=== PATIENT | female | born 1970 | race Caucasian/White ===

== ENCOUNTER 2022-02-14 21:42 | Observation (INO) ==
[2022-02-15] MEDS ORDERED: Naloxone 0.4 MG/ML INJ IVP PRN (01:51)
[2022-02-15 03:05] LABS: Basophils % 0.7 %; Eosinophils # 0.1 K/mcL (0.0-0.6); Eosinophils % 2.2 %; Hematocrit 34.6 % (35.3-44.9); Immature Granulocytes % 0.3 % (0-4); Lymphocytes # 2.7 K/mcL (0.6-4.6); Lymphocytes % 46.3 %; Mean Corpuscular HGB Conc 31.8 g/dL (31.6-35.5); Mean Corpuscular Hemoglobin 28.3 pg (28.0-33.3); Mean Corpuscular Volume 88.9 fL (83.0-100.0); Mean Platelet Volume 9.1 fL (9.4-12.4); Monocytes # 0.4 K/mcL (0.0-1.3); Monocytes % 7.2 %; Neutrophils # 2.5 K/mcL (1.6-8.9); Platelet Count 217 K/mcL (140-400); Red Blood Count 3.89 M/mcL (3.82-4.97); Red Cell Distribution Width 13.4 % (11.5-14.5); Segmented Neutrophils % 43.3 %; White Blood Count 5.9 K/mcL (4.3-11.1)
[2022-02-15] MEDS ORDERED: SUMAtriptan succinate 50 MG TABLET PO ONE (03:08)
[2022-02-15 03:19] LABS: INR 1.1; Prothrombin Time 12.3 Seconds (9.4-12.1)
[2022-02-15 03:31] LABS: Alanine Aminotransferase 33 Units/L (7-52); Albumin 3.2 g/dL (3.5-5.7); Albumin/Globulin Ratio 1.1 (1.1-2.2); Alkaline Phosphatase 76 Units/L (34-104); Aspartate Amino Transferase 18 Units/L (13-39); BUN/Creatinine Ratio 11 (6-26); Bilirubin,Total 0.8 mg/dL (0.3-1.0); Blood Urea Nitrogen 7 mg/dL (6-20); Calcium 8.3 mg/dL (8.6-10.3); Carbon Dioxide 26 mEq/L (23-29); Chloride 107 mEq/L (98-107); Glucose 128 mg/dL (70-105); Osmolality,Calculated 290 (280-300); Potassium 3.5 mEq/L (3.5-5.1); Sodium 140 mEq/L (136-145); Total Protein 6.2 g/dL (6.4-8.9)
[2022-02-15] MEDS ORDERED: *HR* Dextrose 50 % in Water (Syg) 50 ML SYRINGE IVP PRN (03:36)
[2022-02-15] MEDS ORDERED: Dextrose Gel 15 GM/37.5 ML TUBE PO PRN ×2 (03:36)
[2022-02-15] MEDS ORDERED: D5% in Water 1,000 ML IVC PRN (03:36)
[2022-02-15] MEDS ORDERED: Acetaminophen 325 MG TABLET PO PRN (07:59)
[2022-02-15] MEDS: Insulin LISPRO 300 UNITS/3 ML VIAL SUBQ SCH ×3 (08:35→16:48)
[2022-02-15] MEDS ORDERED: SUMAtriptan 6 MG/0.5 ML SQ ONE (08:57)
[2022-02-15] MEDS ORDERED: methylPREDNISolone 125 MG/2 ML VIAL IVP ONE (08:58)
[2022-02-15] MEDS ORDERED: Prochlorperazine 10 MG/2 ML VIAL IVP PRN (12:55)
[2022-02-15 15:21] LABS: Appearance,CSF Clear (Clear); Red Blood Cell,CSF < 2000 RBC/mcL
[2022-02-15 15:50] LABS: Glucose,CSF 111 mg/dL (40-70); Total Protein,CSF 40 mg/dL (15-45)
[2022-02-15] MEDS: Ondansetron 4 MG/2 ML VIAL IVP PRN (16:46)
[2022-02-15] MEDS: Ketorolac 30 MG/ML VIAL IM PRN (17:05)
[2022-02-15] MEDS ORDERED: traZODone 50 MG TABLET PO SCH (21:00)
[2022-02-15] MEDS: acetaZOLAMIDE 250 MG TABLET PO SCH (21:08)
[2022-02-16] MEDS: acetaZOLAMIDE 250 MG TABLET PO SCH (07:49)
[2022-02-16] MEDS: Insulin LISPRO 300 UNITS/3 ML VIAL SUBQ SCH ×4 (07:51→13:07)
[2022-02-16] MEDS ORDERED: Loratadine 10 MG TABLET PO PRN (08:01)
[2022-02-16] MEDS ORDERED: FLUoxetine 20 MG CAPSULE PO SCH (09:00)
[2022-02-16] MEDS: Ketorolac 30 MG/ML VIAL IM PRN (12:07)
[2022-02-16] MEDS: Ondansetron 4 MG/2 ML VIAL IVP PRN (13:14)
[2022-02-16 14:25] VITALS: BP 97/64; PULSE 83; TEMP 98.4; O2SAT 96
[2022-02-16] MEDS ORDERED: Insulin LISPRO 300 UNITS/3 ML VIAL SUBQ SCH ×2 (17:00→21:00)
[2022-02-16] MEDS ORDERED: *HR* Heparin 5,000 UNIT/ML VIAL SQ SCH (18:00)
[2022-02-16] MEDS ORDERED: NON-FORMULARY MEDICATION 1 EACH EACH (Insulin Regular, Human [Humulin R U-500 Kwikpen] 500 SQ SCH (18:00)
== END 2022-02-16 17:06 | disposition home or self-care (01) ==
LOC: 3BNU → SUATTDRO 02-15 01:09
PROVIDERS: ADMIT Student in an Organized Health Care Education/Training Program; ATTEND Internal Medicine

== ENCOUNTER 2022-02-18 20:52 | Observation (INO) ==
[2022-02-18] MEDS ORDERED: Naloxone 0.4 MG/ML INJ IVP PRN (23:36)
[2022-02-18] MEDS ORDERED: Ondansetron ODT 4 MG TAB.RAPDIS SL PRN (23:36)
[2022-02-18] MEDS ORDERED: Melatonin 3 MG TABLET PO PRN (23:36)
[2022-02-18] MEDS ORDERED: Acetaminophen 325 MG TABLET PO PRN (23:36)
[2022-02-18] MEDS ORDERED: *HR* Dextrose 50 % in Water (Syg) 50 ML SYRINGE IVP PRN (23:39)
[2022-02-18] MEDS ORDERED: Dextrose Gel 15 GM/37.5 ML TUBE PO PRN ×2 (23:39)
[2022-02-18] MEDS ORDERED: D5% in Water 1,000 ML IVC PRN (23:39)
[2022-02-18] MEDS ORDERED: Insulin LISPRO 300 UNITS/3 ML VIAL SUBQ SCH (23:45)
[2022-02-19] MEDS ORDERED: Ketorolac 30 MG/ML VIAL IVP ONE
[2022-02-19] MEDS ORDERED: Prochlorperazine 10 MG/2 ML VIAL IVP ONE
[2022-02-19] MEDS: 0.9 % Sodium Chloride 1,000 ML IVC SCH ×2 (00:27→11:57)
[2022-02-19 02:41] LABS: BUN/Creatinine Ratio 16 (6-26); Blood Urea Nitrogen 12 mg/dL (6-20); Calcium 8.8 mg/dL (8.6-10.3); Carbon Dioxide 26 mEq/L (23-29); Chloride 104 mEq/L (98-107); Glucose 139 mg/dL (70-105); Magnesium 1.8 mg/dL (1.6-2.6); Osmolality,Calculated 286 (280-300); Phosphorous 2.9 mg/dL (2.7-4.5); Potassium 3.6 mEq/L (3.5-5.1); Sodium 137 mEq/L (136-145)
[2022-02-19 02:52] LABS: Hematocrit 36.5 % (35.3-44.9); Hemoglobin 11.8 g/dL (11.5-15.4); Mean Corpuscular HGB Conc 32.3 g/dL (31.6-35.5); Mean Corpuscular Hemoglobin 28.5 pg (28.0-33.3); Mean Corpuscular Volume 88.2 fL (83.0-100.0); Mean Platelet Volume 9.4 fL (9.4-12.4); Platelet Count 232 K/mcL (140-400); Red Blood Count 4.14 M/mcL (3.82-4.97); White Blood Count 7.4 K/mcL (4.3-11.1)
[2022-02-19] MEDS: Insulin LISPRO 300 UNITS/3 ML VIAL SUBQ SCH ×2 (07:54→12:17)
[2022-02-19 10:31] VITALS: O2SAT 96
[2022-02-19] MEDS ORDERED: SUMAtriptan succinate 50 MG TABLET PO PRN (10:51)
[2022-02-19 14:18] VITALS: BP 118/75; PULSE 81; TEMP 98
== END 2022-02-19 16:08 | disposition short-term general hospital (02) ==
LOC: 3BNU → SUATTDRO 23:11
PROVIDERS: ADMIT Internal Medicine; ATTEND Registered Nurse